=== PATIENT | female | born 1985 | race Caucasian/White ===

== ENCOUNTER 2017-08-01 00:38 | Emergency (ER) | payer MEDICAID, OTHER ==
[~2017-08-01] VITALS: Ht 160 cm; Wt 71.0 kg
[2017-08-01 00:42] VITALS: Ht 160 cm; Wt 71.0 kg
[2017-08-01] MEDS ORDERED: ONDANSETRON 4 MG INJ IV STA (01:15)
[2017-08-01] MEDS ORDERED: SOD CHLORIDE 0.9% 1,000 ML IV ONE (01:30)
[2017-08-01 02:21] LABS: BASOPHILS % 0.4 % (0.0-2.0); EOSINOPHILS # 0.1 10^3/ul (0.0-0.5); EOSINOPHILS % 1.4 % (0.0-7.0); HEMATOCRIT 32.7 % (37.0-47.0); HEMOGLOBIN 10.8 g/dl (12.0-16.0); LYMPHOCYTES # 1.7 10^3/ul (0.8-2.9); MEAN CORPUSCULAR HEMOGLOBIN 28.3 pg (29.0-33.0); MEAN CORPUSCULAR VOLUME 85.8 fl (82.0-101.0); MEAN PLATELET VOLUME 9.7 fl (7.4-10.4); MONOCYTE # 0.5 10^3/ul (0.3-0.9); MONOCYTES % 8.3 % (0.0-11.0); NEUTROPHILS % 60.4 % (39.0-77.0); PLATELET COUNT 316 10^3/UL (140-415); RED BLOOD COUNT 3.81 10^6/ul (4.20-5.40); RED CELL DISTRIBUTION WIDTH 15.7 % (11.5-14.5); WHITE BLOOD COUNT 5.7 10^3/ul (4.8-10.8)
[2017-08-01 02:24] LABS: ADD UMIC YES; UR ASCORBIC ACID 20 mg/dL (NEGATIVE); UR BACTERIA FEW /HPF (NONE SEEN); UR BILIRUBIN (Dip) NEGATIVE (NEGATIVE); UR BLOOD (Dip) NEGATIVE (NEGATIVE); UR CLARITY SLIGHTLY CLOUDY (CLEAR); UR COLOR YELLOW (YELLOW); UR GLUCOSE (Dip) NEGATIVE (NEGATIVE); UR KETONES (Dip) TRACE mg/dL (NEGATIVE); UR LEUKOCYTE ESTERASE (Dip) 2+ Leu/ul (NEGATIVE); UR MUCUS FEW /HPF (NONE SEEN); UR NITRITE (Dip) NEGATIVE (NEGATIVE); UR RBC 0 /HPF (0-5); UR SPECIFIC GRAVITY (Dip) 1.021 (1.003-1.030); UR SQUAMOUS EPITHELIAL CELL MODERATE /HPF (FEW); UR TOTAL PROTEIN (Dip) 1+ mg/dl (NEGATIVE); UR UROBILINOGEN (Dip) 1+ mg/dL (NEGATIVE)
[2017-08-01 02:46] LABS: ALBUMIN 3.4 g/dl (3.3-4.9); ALBUMIN/GLOBULIN RATIO 0.97; BILIRUBIN,INDIRECT 0.4 mg/dl (0-1.1); BILIRUBIN,TOTAL 0.4 mg/dl (0.2-1.3); CALCIUM 8.7 mg/dl (8.4-10.2); CREATININE 0.58 mg/dl (0.44-1.00); TOTAL PROTEIN 6.9 g/dl (6.1-8.1)
--- NOTE | 2017-08-01 02:59 | ERD ---
ER Documentation Chief Complaint Date/Time DATE: 08/01/17 TIME: 02:57 Chief Complaint bib self, cc: nausea and vomiting multiple times today, no pain, 38 wks HPI This is a 32-year-old female who presents the emergency department today complaining of nausea and vomiting started today. Patient states that she has some chest pain and feels that she has some reflux.. Denies any shortness of breath, abdominal pain, vaginal bleeding. States her last ultrasound was 2 weeks ago and it was normal. States she is 38 weeks . ROS All systems reviewed and are negative except as per history of present illness. Medications Home Meds Active Scripts Famotidine* (Pepcid*) 20 Mg Tablet, 20 MG PO BID for 14 Days, TAB Prov:CLARE CORONEL PA-C 08/01/17 Cephalexin* (Keflex*) 500 Mg Capsule, 500 MG PO QID for 7 Days, CAP Prov:CLARE CORONEL PA-C 08/01/17 Ondansetron Hcl* (Zofran*) 4 Mg Tablet, 4 MG PO Q6H for NAUSEA AND/OR VOMITING, #30 TAB Prov:CLARE CORONEL PA-C 08/01/17 Allergies Allergies: Coded Allergies: No Known Allergy (Unverified , 08/01/17) PMhx/Soc Medical and Surgical Hx: pt denies Medical Hx, pt denies Surgical Hx History of Surgery: No Anesthesia Reaction: No Hx Neurological Disorder: No Hx Respiratory Disorders: No Hx Cardiac Disorders: No Hx Psychiatric Problems: No Hx Miscellaneous Medical Probl: No Hx Alcohol Use: No Hx Substance Use: No Hx Tobacco Use: No Smoking Status: Current every day smoker Physical Exam Vitals Vital Signs Date Time Temp Pulse Resp B/P Pulse Ox O2 Delivery O2 Flow Rate FiO2 08/01/17 03:59 84 18 102/60 98 Room Air 08/01/17 00:42 97.6 83 18 130/82 98 Physical Exam Const: NAD Head: Atraumatic Eyes: Normal Conjunctiva ENT: Normal External Ears, Nose and Mouth. Neck: Full range of motion..~ No meningismus. Resp: Clear to auscultation bilaterally Cardio: Regular rate and rhythm, no murmurs Abd: Soft, non tender, non distended. Normal bowel sounds Skin: No petechiae or rashes Back: No midline or flank tenderness Ext: No cyanosis, or edema Neur: Awake and alert Psych: Normal Mood and Affect Result Diagram: 08/01/174 08/01/174 Results 24 hrs Laboratory Tests Test 08/01/17 01:44 White Blood Count 5.710^3/ul Red Blood Count 3.8110^6/ul Hemoglobin 10.8g/dl Hematocrit 32.7% Mean Corpuscular Volume 85.8fl Mean Corpuscular Hemoglobin 28.3pg Mean Corpuscular Hemoglobin Concent 33.0g/dl Red Cell Distribution Width 15.7% Platelet Count 60864^3/UL Mean Platelet Volume 9.7fl Neutrophils % 60.4% Lymphocytes % 29.0% Monocytes % 8.3% Eosinophils % 1.4% Basophils % 0.4% Nucleated Red Blood Cells % 0.0/100WBC Neutrophils # (Manual) 3.410^3/ul Lymphocytes # 1.710^3/ul Monocytes # 0.510^3/ul Eosinophils # 0.110^3/ul Basophils # 0.010^3/ul Nucleated Red Blood Cells # 0.010^3/ul Urine Color YELLOW Urine Clarity SLIGHTLY CLOUDY Urine pH 6.0 Urine Specific [place] 1.021 Urine Ketones TRACEmg/dL Urine Nitrite NEGATIVEmg/dL Urine Bilirubin NEGATIVEmg/dL Urine Urobilinogen 1+mg/dL Urine Leukocyte Esterase 2+Michelle/ul Urine Microscopic RBC 0/HPF Urine Microscopic WBC 4/HPF Urine Squamous Epithelial Cells MODERATE/HPF Urine Bacteria FEW/HPF Urine Mucus FEW/HPF Urine Hemoglobin NEGATIVEmg/dL Urine Glucose NEGATIVEmg/dL Urine Total Protein 1+mg/dl Sodium Level 137mmol/L Potassium Level 4.0mmol/L Chloride Level 107mmol/L Carbon Dioxide Level 22mmol/L Anion Gap 12 Blood Urea Nitrogen 10mg/dl Creatinine 0.58mg/dl Glucose Level 104mg/dl Calcium Level 8.7mg/dl Total Bilirubin 0.4mg/dl Direct Bilirubin 0.00mg/dl Indirect Bilirubin 0.4mg/dl Aspartate Amino Transf (AST/SGOT) 21IU/L Alanine Aminotransferase (ALT/SGPT) 24IU/L Alkaline Phosphatase 223IU/L Total Protein 6.9g/dl Albumin 3.4g/dl Globulin 3.50g/dl Albumin/Globulin Ratio 0.97 Lipase 114U/L Current Medications Medications (Trade) Dose Ordered Sig/Oleksandr Route PRN Reason Start Time Stop Time Status Last Admin Dose Admin Ondansetron HCl 4 mg 4 mg ONCE STAT IV 08/01/17 01:15 08/01/17 01:18 DC 08/01/17 02:00 Sodium Chloride (NS) 1,000 ml @ 1,000 mls/hr Q1H ONCE IV 08/01/17 01:30 08/01/17 02:29 DC 08/01/17 02:00 Procedures/MDM This is a 32-year-old female who presents emergency department today complaining of nausea and some chest pain that she feels is related to reflux. Patient is approximately 38 weeks . I did do an EKG and check the patient's laboratory workup. I do not feel that she requires an ultrasound she has no abdominal pain or vaginal bleeding. Patient for acute surgical emergency , placenta abruptio. EKG read and interpreted by Dr. Porter. Rate [address] elevation. No QT elongation. Normal sinus rhythm. Low suspicion for acute MA, PE, pericarditis Low suspicion for cardiac cause of chest pain. Possibly related to gastric reflux. Low suspicion for PE, pneumonia, pleural effusion, pneumothorax. Laboratory workup shows no elevated white blood cell count. Patient hemoglobin decreased at 10.8. Electrolytes are within normal limits. Glucose within normal limits. Liver enzymes are within normal limits. Lipase within normal limits UA shows 2+ leukocyte esterase. Patient was given IV fluids, Zofran here in the emergency department and she tolerated p.o. fluids. Patient reported feeling better. Patients nausea and vomiting may be related to her urinary tract infection. She was not actively vomiting and have low suspicion for hyperemesis gravidarum. Do not feel that she requires admission at this time. Patient was given a prescription for Keflex, Pepcid, Zofran At this time the patient is stable for discharge and outpatient management. Patient should follow up with their PCP in the next 1-2 days. They may return to the emergency department sooner for any persistent or worsening of symptoms. Patient understood and agreed with the plan. Discussed the patient with Dr. Porter and he is in agreement with the plan. Departure Diagnosis: Primary Impression: Nausea and vomiting Vomiting type: unspecified Vomiting Intractability: non-intractable Qualified Code: R11.2 - Non-intractable vomiting with nausea, unspecified vomiting type Additional Impression: UTI in Trimester: third trimester Qualified Code: O23.43 - Urinary tract infection in mother during third trimester of Condition: CLARE Saxena PA-C Aug 01, 2017 02:59
[2017-08-01] MEDS ORDERED: CEPH-443 PO (03:46)
[2017-08-01] MEDS ORDERED: ONDA4TAB8 PO (03:46)
[2017-08-01] MEDS ORDERED: FAMO-96 PO (03:48)
[2017-08-01 03:59] VITALS: BP 102/60; PULSE 84; RESP 18
[2017-08-05] MEDS ORDERED: PRENAT PO (18:31)
== END 2017-08-01 04:19 | disposition home or self-care (01) ==
LOC: FTE 00:38
DX: O21.2 Late vomiting of pregnancy (principal); O23.43 Unspecified infection of urinary tract in pregnancy, third trimester; F17.210 Nicotine dependence, cigarettes, uncomplicated; O99.333 Smoking (tobacco) complicating pregnancy, third trimester; R07.9 Chest pain, unspecified; Z3A.38 38 weeks gestation of pregnancy
CPT/HCPCS: 80053; 81001; 83690; 85025; 93005; 96374; J2405; J7030; Z7502

== ENCOUNTER 2017-08-21 13:01 | Inpatient (IN) | payer MEDICAID ==
--- NOTE | 2017-08-06 02:15 | PN ---
Triage Information Date/Time Reason for visit: DFM Weeks of Gestation 38 1/7 /Para 1 Diabetes: none Hypertention: none Additional information 32 Year-old Gwwayne CHAO at 38 1/7 weeks presents with a chief complaint of DFM. She has been receiving her care with Dr. Dougherty. She denies nausea, vomiting, shortness of breath, chest pain, and abdominal pain between contractions, headache, visual changes, vaginal bleeding or LOF. Objective Exam General: Patient appears well, alert and oriented, NAD, appropriate mood and affect ABD: gravid, soft, non-tender. Back: No CVA tenderness (B/L) LE: No clubbing, cyanosis, edema, thigh or calf tenderness bilaterally FHT: 135 bpm , moderate variability with acceleration, no deceleration-category I Contractions: Occasionally SVE: Closed/ceph/intact membrane/ROM/clear Assessment/Plan 32 Year-old Gwwayne LOPEZUP at 38 1/7 weeks c/o DFM. However she felt multiple FM during observation in triage. FHR: No sign of metabolic acidosis- Category I Reactive NST. BPP: 10/10, OLEKSANDR: 17.7. Symptoms and sign of labor, preeclampsia, kick count discussed with patient, she voiced understanding. All of her questions answered. Patient was discharged home in stable condition with the appropriate discharge instructions provided. I would like patient to have close follow-up with her primary physician or outpatient clinic in 1-2 days or return to the ER for worsening symptoms or any other urgent concerns TOM BOOKER Aug 06, 2017 02:15
[~2017-08-21] VITALS: Ht 149.9 cm; Wt 72.3 kg
[~2017-08-21 13:01] MED LIST: CEPH-443 PO; FAMO-96 PO; PRENAT PO
[2017-08-21 13:31] VITALS: BP 122/75; PULSE 79; RESP 18; Ht 149.9 cm; Wt 72.3 kg
--- NOTE | 2017-08-21 13:53 | TRIAGE ---
OB Triage Datetime Report Generated by CPN: 08/21/2017 13:53 Datetime: 08/21/2017 13:29 Assessment Type: Triage Maternal Assessment Level of Consciousness: Fully Conscious DTR's/Clonus: DTRs 2+; No Clonus Headache: Denies Blurred Vision: No Respiratory Effort: Unlabored; Regular Rhythm; Equal Expansion Breath Sounds, Left: Clear and Equal Breath Sounds, Right: Clear and Equal Nausea/Vomiting: Denies RUQ Epigastric Pain: Denies Lower Extremities Edema: None Degree: None Upper Extremities Edema: None Degree: None Facial Edema: None Fall Risk Assessment History of Falling: (0) No Secondary Diagnosis: (0) No Ambulatory Aid: (0) Bedrest/Nurse Assist IV Therapy: (0) No Gait: (0) Normal/Bedrest/Immobile Mental Status: (0) Oriented to Own Ability Fall Score: 0 Fall Risk Score Definition: No Risk: No action required Datetime: 08/21/2017 13:28 Time of Arrival: 08/21/2017 12:55 EGA: 40.3 Arrived By: Wheelchair Arrived From: Home Chief Complaint: PT HERE C/O UC'S Movement: Present Contractions: Regular Rupture of Membranes: Denies Vaginal Bleeding: None Vaginal Discharge: Denies Recent Sexual Intercouse: Yes Abdominal Trauma: Not Applicable Patient Complaints: Contractions; Cramping; Back Pain Provider Notified: BOOM Initial Plan: SVE/EFM Datetime: 08/21/2017 13:24 Vaginal Exam Dilatation (cms): 8.0 Effacement (%): 90 Station: -2 Exam By: CRISTIAN Vaginal Bleeding: None Cervix, Consistency: Soft Cervix, Position: Midposition Presentation 'A': Cephalic Datetime: 08/21/2017 13:21 Labor Evaluation Monitor Mode: External Heart Rate Monitor Mode: External US Datetime: 08/05/2017 18:28 Fall Score: 0 Fall Risk Score Definition: No Risk: No action required Datetime: 08/05/2017 18:25 EGA: 38.1
[2017-08-21] MEDS ORDERED: MISOPROSTOL 200 MCG TAB PR PRN (14:00)
[2017-08-21] MEDS ORDERED: LIDOCAINE 1% (MPF) 30 ML INJ INJ PRN (14:00)
[2017-08-21] MEDS ORDERED: LACTATED RINGER'S 1,000 ML IV PRN (14:00)
[2017-08-21] MEDS ORDERED: CARBOPROST 250 MCG INJ IM PRN (14:00)
[2017-08-21] MEDS ORDERED: OXYTOCIN 30 UNITS/LR 500 ML IV SCH (14:00)
[2017-08-21] MEDS ORDERED: OXYTOCIN 30 UNITS/LR 500 ML IV PRN (14:00)
[2017-08-21] MEDS ORDERED: IBUPROFEN 600 MG TAB PO PRN (14:00)
[2017-08-21] MEDS ORDERED: METHYLERGONOVINE 0.2 MG INJ IM PRN (14:00)
[2017-08-21] MEDS ORDERED: BUTORPHANOL 2 MG INJ IV PRN (14:00)
[2017-08-21] MEDS: LACTATED RINGER'S 1,000 ML IV SCH ×2 (14:04→22:00)
[2017-08-21 14:26] LABS: BASOPHILS % 0.4 % (0.0-2.0); EOSINOPHILS # 0.1 10^3/ul (0.0-0.5); EOSINOPHILS % 1.1 % (0.0-7.0); HEMATOCRIT 34.4 % (37.0-47.0); HEMOGLOBIN 11.3 g/dl (12.0-16.0); LYMPHOCYTES # 1.7 10^3/ul (0.8-2.9); LYMPHOCYTES % 19.8 % (15.0-51.0); MEAN CORPUSCULAR HGB CONC 32.8 g/dl (32.0-37.0); MEAN CORPUSCULAR VOLUME 85.4 fl (82.0-101.0); MEAN PLATELET VOLUME 11.1 fl (7.4-10.4); MONOCYTE # 0.5 10^3/ul (0.3-0.9); MONOCYTES % 6.1 % (0.0-11.0); NEUTROPHIL # 6.1 10^3/ul (1.6-7.5); NEUTROPHILS % 72.1 % (39.0-77.0); PLATELET COUNT 297 10^3/UL (140-415); RED BLOOD COUNT 4.03 10^6/ul (4.20-5.40); RED CELL DISTRIBUTION WIDTH 16.7 % (11.5-14.5); WHITE BLOOD COUNT 8.5 10^3/ul (4.8-10.8)
[2017-08-21 14:46] LABS: INR 0.88; PROTIME 11.9 Sec (12.2-14.2); PT RATIO 0.9
[2017-08-21] MEDS ORDERED: FENTAnyl 2MCG/ML-ROPIV 0.2% 100 ML ONE (17:14)
--- NOTE | 2017-08-21 17:32 | HP ---
Date/Time of Note Date/Time of Note DATE: 08/21/17 TIME: 17:24 OB - History Hx of Present Free Text/Dictation This is a 31 years old female EDC August 18, 2017 admitted to [facility] in early labor pelvic examination on admission dilatation 3 cm effacement 90% presentation vertex at -2 station intact member contraction 2-4 minute quality moderate to strong.. Chief Complaint: Labor pain Estimated Due Date: Aug 18, 2017 : 4 Para: 2 Spontaneous : 1 Care: Good Care Ultrasounds: Normal mid trimester US Obstetrical Complications: None Medical Complications: None Past Family/Social History * Past Medical, Surgical, Family and Obstetric Histories reviewed from chart. Rubella: immune RPR/VDRL: Negative GBS Status: Negative HBsAG: Negative OB Admission Exam Vital Signs Vital Signs Vital Signs Date Time Temp Pulse Resp B/P Pulse Ox O2 Delivery O2 Flow Rate FiO2 08/21/17 13:31 97.8 79 18 122/75 100 Room Air Physical Exam HEENT: WNL Heart: Rhythm Normal Lungs: Clear, Equal Abdomen: WNL Extremities: Normal Reflexes: Normal Cervical Dilatation: 3cm Effacement: Other (90%) Station: -2 Membranes: Intact Heart Rate: 130's Accelerations: Accelerations Present Decelerations: No Decelerations Varibility: Moderate Contractions on Admission: < 5 Minutes Apart Intensity: Firm Last 72 hours Lab Results CBC & BMP 08/21/17 13:45 OB Assessment/Plan Reason for admission: active labor Other plan: 31 years old female EDC August 18, 2017 admitted at 40 weeks and 3 days in labor pelvic examination and admission cervix 3 cm dilated 90% effaced vertex at -2 station heart rate category 1 patient transferred to labor and delivery for management of labor MARGARITA NUR MD Aug 21, 2017 17:32
[2017-08-21] MEDS ORDERED: EPHEDrine SULFATE 50 MG/5 ML SYG IV STA (17:35)
[2017-08-21] MEDS ORDERED: PHENYLephrine (100 MCG/ML) 5ML SYG ONE (18:15)
[2017-08-21] MEDS ORDERED: METOCLOPRAMIDE 10 MG INJ ONE (18:15)
[2017-08-21] MEDS ORDERED: FENTAnyl 50 MCG/ML VIAL ONE (18:15)
[2017-08-21] MEDS ORDERED: morphine SULFATE/PF (10 MG/10 ML) INJ ONE (18:15)
[2017-08-21] MEDS ORDERED: OXYTOCIN 10 UNIT INJ ONE (18:16)
[2017-08-21] MEDS ORDERED: ONDANSETRON 4 MG INJ IV PRN (19:30)
[2017-08-21] MEDS ORDERED: DIPHENHYDRAMINE 50 MG INJ IV PRN (19:30)
[2017-08-21] MEDS ORDERED: NALOXONE (0.4 MG/ML) INJ IV PRN (19:30)
[2017-08-21] MEDS ORDERED: TRIMETHOBENZAMIDE 100 MG/ML VIAL IM PRN (19:30)
[2017-08-21] MEDS ORDERED: NALBUPHINE HCL (10 MG/1 ML) INJ IV PRN (19:30)
[2017-08-21] MEDS ORDERED: FENTAnyl 2MCG/ML-ROPIV 0.2% 100 ML BAG EPI SCH (19:30)
[2017-08-22] MEDS ORDERED: MINERAL OIL LIGHT 10 ML VIAL TOP ONE (02:00)
[2017-08-22] MEDS: OXYTOCIN 30 UNITS/LR 500 ML IV SCH ×2 (02:27→03:02)
[2017-08-22] MEDS: LACTATED RINGER'S 1,000 ML IV* SCH ×2 (02:44→07:14)
--- NOTE | 2017-08-22 02:44 | LDN ---
Date/Time of Note Date/Time of Note DATE: 08/22/17 TIME: 02:41 Delivery Summary 08/22/2017 Weeks of Gestation 40 weeks and 4 days Placenta Delivered: Spontaneously Meconium: none Episiotomy: No Perineal laceration: 1 Laceration repair: 1st degree perieneal laceration reparied using 2-0 chromic Anesthesia type: Epidural Estimated blood loss: 400 Sponge & Needle done & correct: Yes All needle counts correct: Yes Any foreign bodies felt in the: No Problems: Infant Delivery Information Sex Infant Sex: male Suctioning Nose & mouth suctioned at delmy: Yes Delee suction performed: Yes Umbilical Cord Umbilical cord with: 3 Vessels Cord presentations: nuchal cord Nuchal cord present X: 1 Cord Blood was obtained: Yes Mother & Baby Disposition Disposition moderate difficulty noted in delivery of the shouder due to maternal pushing effiorts. resolved with JODI Knox and suprapubic < 30 seconds HAILEY ROSS MD Aug 22, 2017 02:44
[2017-08-22] MEDS ORDERED: OXYTOCIN 30 UNITS/LR 500 ML IV ONE (02:50)
[2017-08-22] MEDS ORDERED: CARBOPROST 250 MCG INJ IM PRN (03:00)
[2017-08-22] MEDS ORDERED: ACETAMINOPHEN 325 MG TAB PO PRN (03:00)
[2017-08-22] MEDS ORDERED: MISOPROSTOL 200 MCG TAB PR PRN (03:00)
[2017-08-22] MEDS ORDERED: METHYLERGONOVINE 0.2 MG INJ IM PRN (03:00)
[2017-08-22] MEDS ORDERED: ZOLPIDEM 5 MG TAB PO PRN (03:00)
[2017-08-22] MEDS ORDERED: ONDANSETRON 4 MG INJ IV PRN (03:00)
[2017-08-22] MEDS ORDERED: DIPHENHYDRAMINE 25 MG CAP PO PRN (03:00)
[2017-08-22] MEDS ORDERED: morphine 4 MG/ML VIAL IV PRN (03:00)
[2017-08-22] MEDS ORDERED: HYDROCODONE/APAP (5/325) TAB PO PRN (03:00)
[2017-08-22] MEDS ORDERED: WITCH HAZEL/GLYCERIN PAD PR PRN (03:00)
[2017-08-22] MEDS ORDERED: OXYTOCIN 30 UNITS/LR 500 ML IV PRN (03:00)
[2017-08-22] MEDS: IBUPROFEN 600 MG TAB PO SCH ×3 (03:23→18:10)
[2017-08-22] MEDS ORDERED: IBUPROFEN 600 MG TAB PO ONE (03:30)
[2017-08-22 05:00] VITALS: BP 135/64; PULSE 77; RESP 18
[2017-08-22 09:00] VITALS: BP 104/55; PULSE 87; RESP 17
[2017-08-22] MEDS: SENNA/DOCUSATE NA (8.6MG/50MG) TAB PO SCH ×2 (09:55→20:49)
[2017-08-22] MEDS: PRENATAL VITAMIN PO SCH (09:55)
[2017-08-22 10:24] LABS: HEMATOCRIT 27.4 % (37.0-47.0); HEMOGLOBIN 8.8 g/dl (12.0-16.0)
[2017-08-22] MEDS ORDERED: INFLUENZA VIRUS VACCINE 0.5 ML SYG IM* ONE (11:00)
[2017-08-22 12:00] VITALS: BP 114/64; PULSE 87; RESP 17
[2017-08-22 16:00] VITALS: BP 126/75; PULSE 75; RESP 17
[2017-08-22 20:45] VITALS: BP 114/65; PULSE 78
[2017-08-23] MEDS: IBUPROFEN 600 MG TAB PO SCH ×4 (00:27→18:11)
[2017-08-23 00:40] VITALS: BP 114/65; PULSE 85; RESP 16
[2017-08-23] MEDS: LACTATED RINGER'S 1,000 ML IV* SCH ×3 (02:44→18:44)
[2017-08-23 05:05] VITALS: BP 105/57; RESP 16
[2017-08-23 08:45] VITALS: BP 103/61; PULSE 89; RESP 18
[2017-08-23] MEDS: PRENATAL VITAMIN PO SCH (09:36)
[2017-08-23] MEDS: SENNA/DOCUSATE NA (8.6MG/50MG) TAB PO SCH ×2 (09:36→21:08)
--- NOTE | 2017-08-23 09:54 | PN ---
Date/Time of Note Date/Time of Note DATE: 08/23/17 TIME: 09:50 OB Subjective Subjective Subjective Post normal vaginal delivery day 1 Afebrile Vital signs are stable Abdomen soft Uterus firm, lochia normal Extremity normal Plan of a.m. discharge discussed with the patient OB Objective Objective Objective day 1 Afebrile Vital signs are stable Abdomen soft uterus firm lochia normal extremity normal Ambulation encouraged OB Assessment/Plan Reason for admission: other MARGARITA NUR MD Aug 23, 2017 09:54
[2017-08-23 16:15] VITALS: BP 98/66; PULSE 87; RESP 18
[2017-08-23 19:57] LABS: BASOPHILS % 0.2 % (0.0-2.0); EOSINOPHILS # 0.2 10^3/ul (0.0-0.5); EOSINOPHILS % 1.9 % (0.0-7.0); HEMATOCRIT 28.3 % (37.0-47.0); HEMOGLOBIN 9.3 g/dl (12.0-16.0); LYMPHOCYTES # 1.5 10^3/ul (0.8-2.9); LYMPHOCYTES % 16.4 % (15.0-51.0); MEAN CORPUSCULAR HEMOGLOBIN 28.2 pg (29.0-33.0); MEAN CORPUSCULAR HGB CONC 32.9 g/dl (32.0-37.0); MEAN CORPUSCULAR VOLUME 85.8 fl (82.0-101.0); MONOCYTE # 0.6 10^3/ul (0.3-0.9); MONOCYTES % 6.5 % (0.0-11.0); NEUTROPHILS % 74.5 % (39.0-77.0); PLATELET COUNT 263 10^3/UL (140-415); RED CELL DISTRIBUTION WIDTH 17.2 % (11.5-14.5); WHITE BLOOD COUNT 9.4 10^3/ul (4.8-10.8)
[2017-08-23 20:15] VITALS: BP 112/76; PULSE 81; RESP 16
[2017-08-24] MEDS: IBUPROFEN 600 MG TAB PO SCH ×3 (00:24→12:03)
[2017-08-24] MEDS: LACTATED RINGER'S 1,000 ML IV* SCH ×2 (02:44→10:44)
[2017-08-24 04:45] VITALS: BP 114/67; PULSE 81; RESP 16
[2017-08-24 08:15] VITALS: BP 95/61; PULSE 79; RESP 17
[2017-08-24] MEDS: PRENATAL VITAMIN PO SCH (09:53)
[2017-08-24] MEDS: SENNA/DOCUSATE NA (8.6MG/50MG) TAB PO SCH (09:53)
--- NOTE | 2017-08-24 12:51 | PD.PPDC ---
PH[employer]GR[employer]IC [employer]ATE [employer] Discharge Instruction Condition Patient Condition: Good Diet Diet: Resume Regular Diet Activity/Restrictions Activity: Normal Activity May Shower Restrictions: No Exercising No Lifting No Driving No Sexual Activity Nothing in the Vagina No [place] No Tampons, douche Follow-up Follow-up with Physician: 2, Week/Weeks Provider Information: instructions given recommended to make appointment to be seen at the clinic in 2 weeks for follow-up Return to clinic for [employer]ACHINE [employer]ER Instructions: Fever greater than 101 Chills Worsening abdominal pain Excessive Vaginal Bleeding More than 2 pads per hour Unable to tolerate diet OB Instructions: Breast Tenderness Depression Blurried Vision Headache MARGARITA NUR MD Aug 24, 2017 12:51
--- NOTE | 2017-08-24 12:56 | DS ---
Date/Time of Note Date/Time of Note DATE: 08/24/17 TIME: 12:52 Discharge Summary Admission/Discharge Info Admit Date/Time Aug 21, 2017 at 13:30 Discharge Date/Time Post normal vaginal delivery day 2 vital signs are stable Afebrile Abdomen soft uterus for Lochia normal Patient was discharged home with a follow-up instruction to be seen at the clinic in 2 weeks Discharge Diagnosis Post normal vaginal delivery Patient Condition: Good Procedures Normal spontaneous vaginal delivery Hx of Present Illness Term admitted in the hospital in labor Hospital Course Satisfactory uneventful Home Meds Reported Medications Multivit/Min/Fol Ac/Iron/Pren* ( S*) 1 Tab Tab, 1 TAB PO DAILY, TAB 08/05/17 Discontinued Scripts Famotidine* (Pepcid*) 20 Mg Tablet, 20 MG PO BID for 14 Days, TAB Prov:CLARE CORONEL PA-C 08/01/17 Cephalexin* (Keflex*) 500 Mg Capsule, 500 MG PO QID for 7 Days, CAP Prov:CLARE CORONEL PA-C 08/01/17 Follow-up Plan instruction given recommended to be seen at the clinic in 2 weeks Primary Care Provider Care Physician No Primary Time spent on discharge: < 30 minutes Pending Labs Laboratory Tests Test 08/23/17 19:45 White Blood Count 9.410^3/ul (4.8-10.8) Red Blood Count 3.3010^6/ul (4.20-5.40) Hemoglobin 9.3g/dl (12.0-16.0) Hematocrit 28.3% (37.0-47.0) Mean Corpuscular Volume 85.8fl (82.0-101.0) Mean Corpuscular Hemoglobin 28.2pg (29.0-33.0) Mean Corpuscular Hemoglobin Concent 32.9g/dl (32.0-37.0) Red Cell Distribution Width 17.2% (11.5-14.5) Platelet Count 63049^3/UL (140-415) Mean Platelet Volume 10.0fl (7.4-10.4) Neutrophils % 74.5% (39.0-77.0) Lymphocytes % 16.4% (15.0-51.0) Monocytes % 6.5% (0.0-11.0) Eosinophils % 1.9% (0.0-7.0) Basophils % 0.2% (0.0-2.0) Nucleated Red Blood Cells % 0.0/100WBC (0.0-0.0) Neutrophils # 7.010^3/ul (1.6-7.5) Lymphocytes # 1.510^3/ul (0.8-2.9) Monocytes # 0.610^3/ul (0.3-0.9) Eosinophils # 0.210^3/ul (0.0-0.5) Basophils # 0.010^3/ul (0.0-0.1) Nucleated Red Blood Cells # 0.010^3/ul (0.0-0.0) MARGARITA NUR MD Aug 24, 2017 12:56
[2017-08-24 16:00] VITALS: BP 116/80; PULSE 74; RESP 16
== END 2017-08-24 16:55 | disposition home or self-care (01) | DRG 775 ==
LOC: L-D 13:01 → OBT 13:01 → L-D 13:30 → OBT 13:34 → PP1 08-22 04:18
PROVIDERS: ADMIT Obstetrics & Gynecology; ATTEND Obstetrics & Gynecology
PROC: 10E0XZZ Delivery of Products of Conception, External Approach (ICD-10-PCS; principal; 2017-08-21)
DX: O69.81X0 Labor and delivery complicated by cord around neck, without compression, not applicable or unspecified (principal); O70.0 First degree perineal laceration during delivery; Z3A.40 40 weeks gestation of pregnancy; Z37.0 Single live birth
CPT/HCPCS: 62319; 85014; 85018; 85025; 85610; 85730; 86592; 86900; 86901; 90686; G0463; J0595; J2274; J2370; J2590; J2765; J3010; J7120

== ENCOUNTER 2017-12-22 19:12 | Emergency (ER) | END 2017-12-22 19:54 | disposition home or self-care (01) ==

== ENCOUNTER 2017-12-24 | Emergency (ER) | END 2017-12-24 02:46 | disposition left against medical advice (07) ==

== ENCOUNTER 2017-12-24 04:14 | Emergency (ER) | END 2017-12-24 06:24 | disposition home or self-care (01) ==